=== PATIENT | male | born 1945 | race Caucasian/White ===

== ENCOUNTER → 2017-07-06 | Outpatient (CLI) | payer OTHER, BC | LOC: FIMAGING 13:36 | PROVIDERS: ATTEND Family Medicine | DX: M79.669 Pain in unspecified lower leg (principal); Z86.718 Personal history of other venous thrombosis and embolism ==

== ENCOUNTER 2018-08-28 09:32 | Emergency (ER) | payer OTHER, BC | END 2018-08-28 11:05 | disposition home or self-care (01) ==